=== PATIENT | male | born 1955 | race Two or more races ===

== ENCOUNTER 2025-07-03 19:52 | Emergency (ER) | payer MEDICAID, SELFPAY ==
[2025-07-03 19:53] VITALS: BMI 30.8
[2025-07-03 20:08] VITALS: BP 182/93; PULSE 74; RESP 20; TEMP 36.6; O2SAT 98
--- NOTE | 2025-07-03 20:22 | EKG_ITS ---
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
[2025-07-03 20:40] VITALS: BP 182/93; PULSE 74
[2025-07-03] MEDS: OXYMETAZOLINE NAS SPRY 0.05% 15 ML BTL NASAL (20:40)
[2025-07-03 20:57] LABS: Basophils # (Auto) 0.0 Thou/mm3 (0.0-0.2); Basophils % (Auto) 0 % (0-2.5); Eosinophils # (Auto) 0.1 Thou/mm3 (0.0-0.5); Eosinophils % (Auto) 1 % (0-10); Hematocrit 40.6 % (41.0-53.0); Hemoglobin 13.8 g/dL (13.5-16.0); Immature Granulocytes Auto 0.02 Thou/mm3 (0.00-0.00); Lymphocytes # (Auto) 1.7 Thou/mm3 (1.0-4.8); Lymphocytes % (Auto) 20 % (10-50); Mean Corpuscular HGB Conc 34.0 g/dl (31.0-37.0); Mean Corpuscular Hemoglobin 31.4 pg (25.0-35.0); Mean Corpuscular Volume 92 fL (80-100); Monocytes # (Auto) 1.0 Thou/mm3 (0.0-0.8); Monocytes % (Auto) 11 % (0-12); Neutrophils # (Auto) 5.9 Thou/mm3 (1.8-7.7); Neutrophils % (Auto) 68 % (37-80); Nucleated Red Blood Cell # 0.00 Thou/mm3 (0.00-0.00); Nucleated Red Blood Cell % 0 /100 WBC (0); Platelet Count 182 Thou/mm3 (140-440); RDW Standard Deviation 41.3 fL (35.1-43.9); Red Blood Count 4.40 Miln/mm3 (4.50-5.90); White Blood Count 8.7 Thou/mm3 (3.8-10.6)
[2025-07-03 21:16] LABS: Alanine Aminotransferase 13 U/L (10-49); Albumin, Serum 4.1 gm/dL (3.4-4.8); Albumin/Globulin Ratio 1.6 (1.2-2.2); Alkaline Phosphatase 88 U/L (46-116); Anion Gap 9 (7-16); Aspartate Amino Transferase 25 U/L (0-34); BUN/Creatinine Ratio 18 Ratio (12-20); Bilirubin,Total 0.3 mg/dL (0.3-1.2); Blood Urea Nitrogen 16 mg/dL (9-23); Calcium 8.6 mg/dL (8.3-10.6); Calcium (Corrected) 8.6 mg/dL (8.5-10.1); Carbon Dioxide 23.6 mMol/L (20.0-31.0); Chloride 110 mMol/L (98-107); Creatinine (Component) 0.9 mg/dL (0.6-1.3); Estimated Creatinine Clearance 65.2 mL/min (>60); Globulin 2.6 gm/dL (2.3-3.5); Glucose 93 mg/dL (74-106); Osmolality,Calculated 286 (275-295); Potassium 4.8 mMol/L (3.4-5.1); Sodium 143 mMol/L (136-145); Total Protein 6.7 gm/dL (5.7-8.2); Troponin I < 0.020 ng/mL (0.0-0.045); eGFR > 60 See Note
[2025-07-03 21:36] VITALS: BP 185/82; PULSE 78
[2025-07-03 21:44] VITALS: BP 185/82; PULSE 78
--- NOTE | 2025-07-04 17:16 | EDNOTE_ITS ---
ED Epistaxis RME/HPI General Chief complaint: Epistaxis/Nasal Foreign Body Stated complaint: BLOODY NOSE Time Seen by Provider: 07/03/25 20:18 Arrival date/time: 07/03/25 19:52 This is a case of 70-year-old male who came in in the emergency room due to nosebleeding on the left nostril on and off which is stopped prior to arrival in the emergency room today patient denies any headache nausea vomiting dizziness blurring of vision chest pain shortness of breath or palpitation patient denies any injury or trauma Limitations: no limitations Related Data Home Medications ?Medication ?Instructions ?Recorded ?Confirmed atorvastatin 10 mg tablet 10 mg PO QDAY 01/16/2301/16 docusate sodium 100 mg capsule 100 mg PO BID PRN Const ipation 01/16/23 01/16/23 finasteride 5 mg tablet 5 mg PO DAILY 01/16/2301/16 omeprazole 20 mg capsule,delayed 20 mg PO DAILY 01/16/23 release paroxetine HCl 20 mg tablet 20 mg PO DAILY 01/16/23 trazodone 100 mg tablet 100 mg PO HS 01/16/23 Previous Rx's ?Medication ?Instructions ?Recorded ibuprofen 800 mg tablet 800 mg PO TID PRN pain #30 t abs 12/13/22 oxymetazoline 0.05 % nasal spray 1 spray intranasal Q1 2H PRN nasal 07/03/25 (Afrin (oxymetazoline)) congestion 5 days #30 mL Allergies Allergy/AdvReac Type Severity Reaction Status Date / Time No Known Allergies Allergy Verified 07/03/25 19:57 Review of Systems Review of Systems Systems Reviewed: All systems reviewed, normal except as documented Past Medical History Past Medical History NEUROLOGIC: Negative Neurological Disorders or Seizures CARDIAC: Positive Hypertension (NO MEDS); Negative Cardiac Disorders or Congestive Heart Failure RESPIRATORY: Negative Chronic Obstructive Pulmonary Disease (COPD) or Asthma GASTROINTESTINAL: Positive Gastrointestinal Disorders (CONSTIPATION) GENITOURINARY: Positive Genitourinary Disorders and Benign Prostatic Hyperplasia; Negative Renal Disease MUSCULOSKELETAL: Positive Musculoskeletal Disorders and Arthritis ENDOCRINE: Negative Diabetes Mellitus Type 1 or Diabetes Mellitus Type 2 HEMATOLOGIC: Negative Blood Disorders or Sickle Cell Disease PSYCHO/SOCIAL: Positive Depression and Anxiety OTHER HISTORY: Positive Cancer; Negative Blood Transfusions, Anesthesia Reactions, Measles or Mumps Social History SMOKING STATUS: Never smoker ED Exam General Limitations: Present no limitations General appearance: Present alert, in no apparent distress and other (Patient is awake alert oriented not in distress nontoxic looking well-hydrated well- nourished) Head Head exam: Present atraumatic, normocephalic and normal inspection Eye Eye exam: Present normal appearance, PERRL, EOMI and other (PERRL EOM intact normal conjunctiva no palpable edema no hyphema) ENT ENT exam: Present normal exam, normal oropharynx, mucous membranes moist and other (Nose and throat exam is normal no sinus frontal maxillary tenderness no nasal polyps no nasal deviation nostrils and turbinates left were red and swollen but no active bleeding) Neck Neck exam: Present normal inspection, full ROM and trachea midline; Absent tenderness, meningismus, lymphadenopathy or thyromegaly Chest Chest inspection: Present normal inspection and symmetric chest wall rise; Absent tenderness Respiratory Respiratory exam: Present normal lung sounds bilaterally; Absent respiratory distress, wheezes, stridor, accessory muscle use or prolonged expiratory phase Cardiovascular Cardiovascular exam: Present regular rate, normal rhythm and normal heart sounds Abdominal Exam Abdominal exam: Present soft and normal bowel sounds; Absent distention, tenderness, guarding, rebound, rigidity, diminished bowel sounds, hyperactive bowel sounds, hypoactive bowel sounds or organomegaly Extremities Exam Extremities exam: Present normal inspection and full ROM Back Exam Back exam: Present normal inspection and full ROM Neurological Exam Neurological exam: Present alert, oriented X3, CN II-XII intact, normal gait, reflexes normal and other (Awake alert oriented x 4 no focal deficit GCS 15/15 steady gait memory intact no facial droop no slurring of speech motor or sensory reflex were normal negative); Absent motor sensory deficit Psychiatric Psychiatric exam: Present normal affect and normal mood Skin Skin exam: Present warm, dry, intact and normal color Course Quality Measures none Orders Category Date Time Status EKG (ED ONLY) *Do not use* NOW Care 07/03/25 20:22 Completed EKG (ED Only) Stat Exams 07/03/25 20:22 Draft CBC Stat Lab 07/03/25 20:34 Completed CMP [Comprehensive Metabolic Panel] Stat Lab 07/03/25 20:34 Completed Troponin I Stat Lab 07/03/25 20:34 Completed Oxymetazoline [place] 0.05% [Afrin Nasal [place]] Med 07/03/25 20:21 Discontinued See Dose Instructions NASAL X1 ONE cloNIDine HCL [Catapres] Med 07/03/25 20:22 Discontinued 0.1 mg PO X1 ONE cloNIDine HCL [Catapres] Med 07/03/25 21:37 Discontinued 0.1 mg PO X1 ONE Vital Signs Vital signs: Vital Signs Temperature 98 F 07/03/25 20:08 Pulse Rate 74 07/03/25 20:08 Respiratory Rate 20 07/03/25 20:08 Blood Pressure 182/93 H 07/03/25 20:08 Pulse Oximetry (%) 98 07/03/25 20:08 Oxygen Delivery Method Room Air 07/03/25 20:08 Oxygen saturation is 98% in room air Epistaxis MDM Narrative MDM Narrative:: This is a case of 70-year-old male who came in in the emergency room due to nosebleeding on the left nostril on and off which is stopped prior to arrival in the emergency room today patient denies any headache nausea vomiting dizziness blurring of vision chest pain shortness of breath or palpitation patient denies any injury or trauma physical examination patient is awake alert oriented not in distress nontoxic looking well-hydrated well-nourished lungs sound is clear no crackles no rales no retraction no stridor heart normal rate regular rhythm no murmur no edema patient neurological exam is normal awake alert oriented x 4 no focal deficit GCS 15/15 steady gait HEENT exam noted ear and throat were normal left nostrils noted some redness but no active bleeding with swollen turbinates no sinus or frontal tenderness no nasal polyp no septal deviation patient was given Afrin 5 sprays to prevent recurrent nosebleeding patient blood pressure noted to be 182/93 patient is afebrile not tachycardic not tachypneic not h ypoxic thus I ordered some blood test EKG normal sinus rhythm troponin negative no leukocytosis no anemia kidney and liver function is normal no electrolyte imbalance patient is not taking any blood thinner patient was given clonidine 0.2 mg p.o. BP was observed after 1 hour and noted to be 135/85 no recurrence of nosebleeding at this point patient will be discharged home with stable condition patient will continue to monitor his blood pressure twice a day and if symptoms recur or become symptomatic or blood pressure greater than 160/100 return to the emergency room immediately or call 911 for any worsening symptoms recurrence persistent he is also informed to return in the emergency room immediately or call 911 patient will follow-up with ENT for epistaxis patient will follow-up with PCP in 2 days for reevaluation and to monitor blood pressure and to review medication for hypertension patient was prescribed Afrin to be taken for 5 days then as needed for nosebleeding Patient was discharged with comfortable condition walking with stable gait. Patient verbalized no further complains explained diagnosis and answered patient question. Patient is comfortable with the proposed management plan including the need to follow up with his/her primary care physician and any specialist if applicable Discussed patient for any urgent condition or worsening sx, He/She needed to go to emergency room immediately or call 911. Patient acknowledge the responsibility to follow up as instructed and to monitor her/his symptoms. For any persistence of the symptoms for more than 3-5 days return precaution advised. Discussed the result of the test and was given printed discharge instruction Patient data External records reviewed:: [facility] previous records Clinical information provided by:: patient Social determinants that could affect healthcare access:: none Patient has the following chronic illnesses:: None How is presenting disease/condition affected by chronic disease/condition?: no chronic disease Evaluation data The following diagnostics were reviewed and interpreted by me:: lab results, radiology exam(s) and EKG tracing(s) Lab and/or radiology exams considered but not ordered:: Reviewed Interpretation Summary: Reviewed Medications / Prescriptions Medications or Prescriptions considered but not ordered:: Given Medication administrations:: Medication Administration History Discontinued Medications Clonidine (Clonidine Hcl 0.1 Mg Tablet) 0.1 mg PO X1 ONE Stop: 07/03/25 20:23 Last Admin: 07/03/25 20:40 Dose: 0.1 mg Documented By: OA Clonidine (Clonidine Hcl 0.1 Mg Tablet) 0.1 mg PO X1 ONE Stop: 07/03/25 21:38 Last Admin: 07/03/25 21:44 Dose: 0.1 mg Documented By: OA Oxymetazoline HCl (Oxymetazoline [place] 0.05% 15 Ml Btl) 0 spray NASAL X1 ONE Stop: 07/03/25 20:22 Last Admin: 07/03/25 20:40 Dose: 6 spray Documented By: OA Given Consultations Consultation(s) initiated? (list below): No Diagnosis Epistaxis Differential Diagnosis: anterior epistaxis and posterior epistaxis Most likely diagnosis given after review of the tests above:: Epistaxis uncontrolled hypertension Admission Indicated Admission indicated?: not indicated Explain why admission is indicated or not indicated:: Not indicated Admission Request Was there a request for admission?: No Admission Attestation Admission request attestation: Not indicated Disposition Plan Disposition Plan: Discharge Discharge Attestation Discharge Attestation: The patient and all family members were given an opportunity to ask questions and understood the discharge instructions. Discharge instructions specifically effects, indications for sooner follow up or return to the emergency department, and the expected course of current diagnosis. Patient condition: Stable Discharge Plan Plan Patient Disposition: HOME (Self Care) Patient condition on transfer: Stable Prescriptions/Referrals Prescriptions/Med Rec: New oxymetazoline [Afrin (oxymetazoline)] 0.05 % spray,non-aerosol 1 spray intranasal Q12H PRN (Reason: nasal congestion) 5 Days Qty: 30 0RF Rx Instructions: 1 spray each nostril every 12 hours for 5 days then as needed for nosebleeding No Action atorvastatin 10 mg Tablet 10 mg PO QDAY trazodone 100 mg tablet 100 mg PO HS Patient Comments: take 1 tablet by mouth at bedtime if needed paroxetine HCl 20 mg tablet 20 mg PO DAILY Patient Comments: take 1 tablet by mouth at bedtime docusate sodium 100 mg capsule 100 mg PO BID PRN (Reason: Constipation) Patient Comments: take 1 capsule by mouth twice a day if needed omeprazole 20 mg capsule,delayed release(DR/EC) 20 mg PO DAILY finasteride 5 mg tablet 5 mg PO DAILY ibuprofen 800 mg tablet 800 mg PO TID PRN (Reason: pain) Qty: 30 0RF Problem List Clinical Impression: Epistaxis, Hypertension, uncontrolled Patient/Caregiver Discharge Instructions Education Materials: ED Epistaxis (Adult), ED Hypertension, Established, ED High Blood Pressure ... Additional Instructions: Follow-up with your primary care physician in 2 days for reevaluation and to be referred to ENT specialist for further evaluation and treatment of epistaxis follow-up with your primary care physician to monitor your blood pressure and to review medication for hypertension continue medication for hypertension check your blood pressure twice a day and if your blood pressure greater than 160/100 or become symptomatic return to the emergency room immediately or call 911 take your medication for hypertension daily low-fat low-cholesterol diet and regular exercise is advised Print Language: Danish Stand Alone Forms: [employer] Award Info., Patient Portal Info Letter 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 Hayes
== END 2025-07-03 22:19 | disposition home or self-care (01) ==
PROVIDERS: Nurse Practitioner Family; Emergency Provider Emergency Medicine
DX: T17.1XXA Foreign body in nostril, initial encounter (principal); W44.9XXA Unspecified foreign body entering into or through a natural orifice, initial encounter; I10 Essential (primary) hypertension
CPT/HCPCS: 36415; 80053; 84484; 85025; 93005; 99283; A9270

== ENCOUNTER 2025-07-30 03:26 | Emergency (ER) | payer MEDICAID, SELFPAY ==
[2025-07-30] VITALS (8 sets, daily range): BP systolic 138–160; BP diastolic 79–104; PULSE 55–65; RESP 16–19; TEMP 36.4–36.7; O2SAT 95–100; BMI 26.6
--- NOTE | 2025-07-30 03:35 | EKG_ITS ---
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
--- NOTE | 2025-07-30 04:40 | XR_ITS ---
EXAMINATION: PA chest single view TECHNIQUE: Upright PA chest single view Date and time: #2024, 0450 hours INDICATION: Shortness of breath chest pain beginning 2 days ago FINDINGS: Normal heart size Small retrocardiac gastric hernia Ectatic thoracic aorta. No pneumonia or pulmonary edema Mild osteopenia IMPRESSION: No pneumonia or pulmonary edema
--- NOTE | 2025-07-30 04:41 | PD.EDRME ---
Rapid Medical Screening Exam [facility] Arrival date/time: 07/30/25 03:26 70M with history of anxiety presents to ED with several hours of nasal congestion and SOB. Patient thinks it might be related to a head trauma he sustained in 1979. Patient denies any pain including CP and fevers/chills. Chief Complaint: General Adult/Misc Complain Vital signs: Vital Signs Temperature 97.5 F 07/30/25 03:35 Pulse Rate 65 07/30/25 03:35 Respiratory Rate 18 07/30/25 03:35 Blood Pressure 154/90 H 07/30/25 03:35 Pulse Oximetry (%) 97 07/30/25 03:35 Oxygen Delivery Method Room Air 07/30/25 03:35 Exam: Clear lungs and normal WOB. Anxious. Clinical Impression: anxiety vs drug use vs CAP vs URI vs PE
[2025-07-30 05:44] LABS: Basophils # (Auto) 0.0 Thou/mm3 (0.0-0.2); Basophils % (Auto) 0 % (0-2.5); Eosinophils # (Auto) 0.1 Thou/mm3 (0.0-0.5); Eosinophils % (Auto) 0 % (0-10); Hematocrit 42.5 % (41.0-53.0); Hemoglobin 14.5 g/dL (13.5-16.0); Immature Granulocytes Auto 0.04 Thou/mm3 (0.00-0.00); Lymphocytes # (Auto) 2.1 Thou/mm3 (1.0-4.8); Lymphocytes % (Auto) 18 % (10-50); Mean Corpuscular HGB Conc 34.1 g/dl (31.0-37.0); Mean Corpuscular Hemoglobin 31.3 pg (25.0-35.0); Mean Corpuscular Volume 92 fL (80-100); Monocytes # (Auto) 1.1 Thou/mm3 (0.0-0.8); Monocytes % (Auto) 9 % (0-12); Neutrophils # (Auto) 8.3 Thou/mm3 (1.8-7.7); Neutrophils % (Auto) 72 % (37-80); Nucleated Red Blood Cell # 0.00 Thou/mm3 (0.00-0.00); Nucleated Red Blood Cell % 0 /100 WBC (0); Platelet Count 201 Thou/mm3 (140-440); RDW Standard Deviation 40.3 fL (35.1-43.9); Red Blood Count 4.63 Miln/mm3 (4.50-5.90); White Blood Count 11.6 Thou/mm3 (3.8-10.6)
[2025-07-30 05:56] LABS: B-Type Natriuretic Peptide < 20 pg/mL (0-100)
[2025-07-30 05:59] LABS: Alanine Aminotransferase 15 U/L (10-49); Albumin, Serum 4.3 gm/dL (3.4-4.8); Albumin/Globulin Ratio 1.7 (1.2-2.2); Alkaline Phosphatase 92 U/L (46-116); Anion Gap 8 (7-16); Aspartate Amino Transferase 17 U/L (0-34); BUN/Creatinine Ratio 15 Ratio (12-20); Bilirubin,Total 0.4 mg/dL (0.3-1.2); Blood Urea Nitrogen 12 mg/dL (9-23); Calcium 8.9 mg/dL (8.3-10.6); Calcium (Corrected) 8.9 mg/dL (8.5-10.1); Carbon Dioxide 28.0 mMol/L (20.0-31.0); Chloride 106 mMol/L (98-107); Creatinine (Component) 0.8 mg/dL (0.6-1.3); Globulin 2.5 gm/dL (2.3-3.5); Glucose 102 mg/dL (74-106); Osmolality,Calculated 282 (275-295); Potassium 4.6 mMol/L (3.4-5.1); Sodium 142 mMol/L (136-145); Total Protein 6.8 gm/dL (5.7-8.2); Troponin I < 0.002 ng/mL (0.0-0.045); eGFR > 60 See Note
[2025-07-30] MEDS: DIAZEPAM 5 MG TABLET PO (07:56)
--- NOTE | 2025-07-30 08:17 | PC.NURSE ---
Patient from [facility] and taken to room 19 with c/o sob that started last pm and worse this am, patient denies fever and no c/o cough, patient resp. even and non labored. Patient states he has h/o asthma and ran out of his inhaler. Patient also states he does feel anxious. Patient given Ativan and states he is feeling better, call light within reach. Patient has no other needs at this time.
--- NOTE | 2025-07-30 09:31 | PD.EDSOB ---
ED SOB =RME/HPI General Chief Complaint: General Adult/Misc Complain Stated Complaint: DIFF BREATHING Time Seen by Provider: 07/30/25 09:48 Arrival date/time: 07/30/25 03:26 Limitations: no limitations RME / HPI RME / HPI Narrative: 07/30/25 03:26 70M with history of anxiety presents to ED with several hours of nasal congestion and SOB. Patient thinks it might be related to a head trauma he sustained in 1979. Patient denies any pain including CP and fevers/chills. DR. LANDRY MAIN ED EVALUATION: 70-year-old male with history of COPD, hypertension, GERD, and hypercholesterolemia presents to the Emergency Department with complaint of shortness of breath that began around 2 AM last night. Symptoms are moderate. Patient reports a significant past smoking history. No chest pain, fever, or cough reported. Related Data Home Medications ?Medication ?Instructions ?Recorded ?Confirmed atorvastatin 10 mg tablet 10 mg PO QDAY 01/16/23 01/16/23 docusate sodium 100 mg capsule 100 mg PO BID PRN Constipation 01/16/23 01/16/23 finasteride 5 mg tablet 5 mg PO DAILY 01/16/23 01/16/23 omeprazole 20 mg capsule,delayed 20 mg PO DAILY 01/16/23 01/16/23 release paroxetine HCl 20 mg tablet 20 mg PO DAILY 01/16/23 01/16/23 trazodone 100 mg tablet 100 mg PO HS 01/16/23 01/16/23 Previous Rx's ?Medication ?Instructions ?Recorded ibuprofen 800 mg tablet 800 mg PO TID PRN pain #30 tabs 12/13/22 albuterol sulfate 90 mcg/actuation 1 inh inhalation QID PRN shortness 07/30/25 aerosol inhaler (Ventolin HFA) of breath or wheezing #8.5 grams prednisone 20 mg tablet See Taper PO QDAY allergic 07/30/25 reaction #18 tabs Allergies Allergy/AdvReac Type Severity Reaction Status Date / Time No Known Allergies Allergy Verified 07/30/25 03:27 Review of Systems Review of Systems Systems Reviewed: All systems reviewed, normal except as documented Past Medical History Past Medical History CARDIAC: Positive Hypertension RESPIRATORY: Positive Respiratory Disorders and Asthma GASTROINTESTINAL: Positive Gastrointestinal Disorders GENITOURINARY: Positive Genitourinary Disorders and Benign Prostatic Hyperplasia MUSCULOSKELETAL: Positive Musculoskeletal Disorders and Arthritis PSYCHO/SOCIAL: Positive Depression and Anxiety Social History SMOKING STATUS: Former smoker SUBSTANCE USE: does not use ALCOHOL: Never ED Exam General Limitations: Present no limitations General appearance: Present alert and in no apparent distress Head Head exam: Present atraumatic, normocephalic and normal inspection Eye Eye exam: Present normal appearance, PERRL and EOMI ENT ENT exam: Present normal exam, normal oropharynx and mucous membranes moist Neck Neck exam: Present normal inspection, full ROM and trachea midline Chest Chest inspection: Present normal inspection and symmetric chest wall rise Respiratory Respiratory exam: Present other (slightly decreased breath sounds bilaterally); Absent wheezes Cardiovascular Cardiovascular exam: Present regular rate, normal rhythm and normal heart sounds Abdominal Exam Abdominal exam: Present soft and normal bowel sounds Extremities Exam Extremities exam: Present normal inspection and full ROM Back Exam Back exam: Present normal inspection and full ROM Neurological Exam Neurological exam: Present alert, oriented X3 and CN II-XII intact Psychiatric Psychiatric exam: Present normal affect and normal mood Skin Skin exam: Present warm, dry, intact and normal color Course Quality Measures none Orders Category Date Time Status [employer] NOW Care 07/30/25 09:50 Completed Continuous Pulse Oximetry NOW Care 07/30/25 09:50 Completed EKG (ED ONLY) *Do not use* NOW Care 07/30/25 03:35 Completed Insert IV NOW Care 07/30/25 09:50 Completed EKG (ED Only) Stat Exams 07/30/25 03:35 Draft XR chest 1V portable Stat Exams 07/30/25 04:40 Completed B-Type Natriuretic Peptide Stat Lab 07/30/25 05:23 Completed CBC Stat Lab 07/30/25 05:23 Completed Comprehensive Metabolic Panel Stat Lab 07/30/25 05:23 Completed Troponin I Stat Lab 07/30/25 05:23 Completed ALBUTEROL RT 3ml [Proventil Rt 3ml] Med 07/30/25 09:50 Discontinued 2.5 mg INH X1 ONE Diazepam [Valium] Med 07/30/25 04:40 Discontinued 5 mg PO X1 ONE MethylPREDNISolone.* [SoluMEDROL Inj] Med 07/30/25 09:50 Discontinued 125 mg IVP X1 ONE Vital Signs Vital signs: Vital Signs Temperature 97.5 F 07/30/25 03:35 Pulse Rate 65 07/30/25 03:35 Respiratory Rate 18 07/30/25 03:35 Blood Pressure 154/90 H 07/30/25 03:35 Pulse Oximetry (%) 97 07/30/25 03:35 Oxygen Delivery Method Room Air 07/30/25 03:35 Shortness of Breath / Dyspnea [facility] Narrative [facility] Narrative:: I, Lily Olmstead, am scribing for and in the presence of Dr. Landry. 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 Exam with slightly decreased breath sounds and no wheezing. Workup initiated for COPD exacerbation versus cardiac or infectious cause. Differential diagnoses include COPD exacerbation, pneumonia, and CHF exacerbation. 1140: Patient doing better and will discharge with COPD acute exacerbation. Patient data External records reviewed:: [facility] previous records Clinical information provided by:: patient Social determinants that could affect healthcare access:: other (specify) (Former smoker) Patient has the following chronic illnesses:: COPD, hypertension, GERD, and hypercholesterolemia How is presenting disease/condition affected by chronic disease/condition?: exacerbated by Evaluation data The following diagnostics were reviewed and interpreted by me:: lab results, radiology exam(s) and EKG tracing(s) (My interpretation: EKG performed at 0356 hours, sinus rhythm, rate 64, no acute changes, no STEMI) Lab and/or radiology exams considered but not ordered:: none Interpretation Summary: See MDM narrative above. RADIOLOGY Procedure(s): XR chest 1V portable Accession Number(s): [id number] cc: Ayaz Doty PA-C; Jeff Guerra MD; Marlon Lion PA-C~ EXAMINATION: PA chest single view TECHNIQUE: Upright PA chest single view Date and time: #2024, 0450 hours INDICATION: Shortness of breath chest pain beginning 2 days ago FINDINGS: Normal heart size Small retrocardiac gastric hernia Ectatic thoracic aorta. No pneumonia or pulmonary edema Mild osteopenia IMPRESSION: No pneumonia or pulmonary edema Dictated By: Jeff Guerra MD Medications / Prescriptions Medications or Prescriptions considered but not ordered:: none Medication administrations:: Medication Administration History Discontinued Medications Albuterol (Albuterol Rt 2.5 Mg/3 Ml Nebu) 2.5 mg INH X1 ONE Stop: 07/30/25 09:51 Last Admin: 07/30/25 10:07 Dose: 2.5 mg Documented By: ELINA Diazepam (Diazepam 5 Mg Tablet) 5 mg PO X1 ONE Stop: 07/30/25 04:41 Last Admin: 07/30/25 07:56 Dose: 5 mg Documented By: BY Methylprednisolone Sodium Succinate (Methylprednisolone Sod Succ 62.5 Mg/Ml 2ml Vial) 125 mg IVP X1 ONE Stop: 07/30/25 09:51 Last Admin: 07/30/25 10:42 Dose: 125 mg Documented By: BY see above Consultations Consultation(s) initiated? (list below): No Diagnosis Shortness of Breath Differential Diagnosis: other (COPD exacerbation, pneumonia, and CHF exacerbation) Most likely diagnosis given after review of the tests above:: COPD acute exacerbation Admission Indicated Admission indicated?: not indicated Admission Request Was there a request for admission?: No Disposition Plan Disposition Plan: Discharge Discharge Attestation Discharge Attestation: The patient and all family members were given an opportunity to ask questions and understood the discharge instructions. Discharge instructions specifically effects, indications for sooner follow up or return to the emergency department, and the expected course of current diagnosis. Patient condition: Stable Discharge Plan Plan Patient Disposition: HOME (Self Care) Patient condition on transfer: Stable Prescriptions/Referrals Prescriptions/Med Rec: New prednisone 20 mg tablet See Taper PO QDAY MDD 3 Qty: 18 0RF Taper: Prednisone Taper 20 mg DAILY for 2 Days and 0 Hour Rx Instructions: Take 3 Tabs q Day for 3 days then take 2 tabs q Day for 3 days then take 1 tablet q Day for 3 days then D/C #18 albuterol sulfate [Ventolin HFA] 90 mcg/actuation HFA aerosol inhaler 1 inh inhalation QID MDD 4 INHALATIONS PRN (Reason: shortness of breath or wheezing) Qty: 8.5 1RF No Action atorvastatin 10 mg Tablet 10 mg PO QDAY trazodone 100 mg tablet 100 mg PO HS Patient Comments: take 1 tablet by mouth at bedtime if needed paroxetine HCl 20 mg tablet 20 mg PO DAILY Patient Comments: take 1 tablet by mouth at bedtime docusate sodium 100 mg capsule 100 mg PO BID PRN (Reason: Constipation) Patient Comments: take 1 capsule by mouth twice a day if needed omeprazole 20 mg capsule,delayed release(DR/EC) 20 mg PO DAILY finasteride 5 mg tablet 5 mg PO DAILY ibuprofen 800 mg tablet 800 mg PO TID PRN (Reason: pain) Qty: 30 0RF Referrals: Ayaz Doty PA-C [Primary Care Provider] - In 1 week Problem List Clinical Impression: Chronic obstructive pulmonary disease with (acute) exacerbation Patient/Caregiver Discharge Instructions Discharge Activity: activity as tolerated Education Materials: COPD: Using Inhalers Additional Instructions: Take medications as prescribed. Follow-up with your doctor next Friday or Friday. Print Language: Georgian Stand Alone Forms: [employer] Award Info., Patient Portal Info Letter
[2025-07-30] MEDS: ALBUTEROL RT 2.5 MG/3 ML NEBU INH (10:07)
[2025-07-30] MEDS: MethylPREDNISolone SOD SUCC 62.5 MG/ML 2ML VIAL 125 MG IVP (10:42)
== END 2025-07-30 12:32 | disposition home or self-care (01) ==
PROVIDERS: Physician Assistant; Emergency Provider Family Medicine; PCP Physician Assistant
DX: J44.1 Chronic obstructive pulmonary disease with (acute) exacerbation (principal); Z87.891 Personal history of nicotine dependence
CPT/HCPCS: 36415; 71045; 80053; 83880; 84484; 85025; 93005; 94640; 96374; 99284; J2919; A9270